=== PATIENT | female | born 1945 | race Two or more races ===

== ENCOUNTER 2021-04-18 08:00 | Outpatient (CLI) | payer OTHER ==
[~2021-04-18] VITALS: Ht 162.6 cm; Wt 68.9 kg
[2021-04-18] MEDS ORDERED: CLONAZE PO (12:41)
[2021-04-18] MEDS ORDERED: PROTONIX20 MG PO (12:41)
[2021-04-18] MEDS ORDERED: FAMOTI PO (12:42)
[2021-04-18] MEDS ORDERED: METOPROLOL SUCC25 MG PO (12:42)
[2021-04-18] MEDS ORDERED: FLUOX PO (12:43)
== END 2021-04-18 08:30 | disposition home or self-care (01) ==
LOC: EKG 08:00 → SURH 04-24 10:15 → EDSTATUS 04-24 10:15 → SURH 04-24 17:45
PROVIDERS: ATTEND Surgery
DX: C20 Malignant neoplasm of rectum (principal); K62.5 Hemorrhage of anus and rectum; Z03.818 Encounter for observation for suspected exposure to other biological agents ruled out; I10 Essential (primary) hypertension

== ENCOUNTER 2021-05-24 08:42 | Inpatient (IN) | payer OTHER ==
[~2021-05-24] VITALS: Ht 162.6 cm; Wt 68.0 kg
[~2021-05-24 08:42] MED LIST: CLONAZE PO; FAMOTI PO; FLUOX PO; METOPROLOL SUCC25 MG PO; PROTONIX20 MG PO
[2021-05-27] MEDS ORDERED: CLONAZEPAM0.5 MG (08:34)
[2021-05-27] MEDS ORDERED: FLUOXETINE HCL20 MG (08:34)
[2021-05-27] MEDS ORDERED: PANTOPRAZOLE SO40 MG (08:35)
[2021-05-27] MEDS ORDERED: FAMOTIDINE40 MG (08:35)
[2021-05-27] MEDS ORDERED: SMOOTHLAX238 GM PO (08:35)
[2021-05-27] MEDS ORDERED: LUBRICANT EYE D10 M1 (08:35)
[2021-05-27] MEDS ORDERED: ATORVASTATIN CA20 MG (08:35)
[2021-05-27] MEDS ORDERED: EMERGEN-C 1,01000 MG (08:35)
[2021-05-27] MEDS ORDERED: ACETAMINOPHEN500 M1 (08:36)
[2021-05-30] MEDS ORDERED: ULTRAM50 MG PO (09:02)
[2021-05-30] MEDS ORDERED: INTESTINEX680 M1 PO (09:03)
[2021-05-30] MEDS ORDERED: NEURONTIN300 MG PO (09:03)
== END 2021-05-30 10:48 | disposition home or self-care (01) | DRG 331 ==
LOC: O/R 05-27 06:40 → SURH 05-27 06:40
PROVIDERS: ADMIT Surgery; ATTEND Surgery
PROC: 0DTN4ZZ Resection of Sigmoid Colon, Percutaneous Endoscopic Approach (ICD-10-PCS; 2021-05-27)
PROC: 07BD4ZX Excision of Aortic Lymphatic, Percutaneous Endoscopic Approach, Diagnostic (ICD-10-PCS; 2021-05-27)
PROC: 3E0F7SF Introduction of Other Gas into Respiratory Tract, Via Natural or Artificial Opening (ICD-10-PCS; 2021-05-27)
PROC: 0DTP4ZZ Resection of Rectum, Percutaneous Endoscopic Approach (ICD-10-PCS; principal; 2021-05-27 09:00)
DX: C19 Malignant neoplasm of rectosigmoid junction (principal); Z20.822 Contact with and (suspected) exposure to COVID-19

== ENCOUNTER 2021-07-01 06:25 | Day surgery (SDC) | payer OTHER ==
[~2021-07-01 06:25] MED LIST changes: +ACETAMINOPHEN500 M1; +ATORVASTATIN CA20 MG; +CLONAZEPAM0.5 MG; +EMERGEN-C 1,01000 MG; +FAMOTIDINE40 MG; +FLUOXETINE HCL20 MG; +INTESTINEX680 M1 PO; +LUBRICANT EYE D10 M1; +NEURONTIN300 MG PO; +PANTOPRAZOLE SO40 MG; +SMOOTHLAX238 GM PO; +ULTRAM50 MG PO
[2021-07-01] MEDS ORDERED: ULTRAM50 MG PO (09:51)
== END 2021-07-01 11:50 | disposition home or self-care (01) ==
LOC: CIR.AMB 06:25
PROVIDERS: ATTEND Surgery
DX: C20 Malignant neoplasm of rectum (principal)
CPT/HCPCS: 36561; C1751